=== PATIENT | male | born 1965 | race Caucasian/White ===

== ENCOUNTER 2023-02-08 06:17 | Emergency (ER) | payer BC ==
[~2023-02-08] VITALS: Ht 182.9 cm; Wt 97.5 kg
== END 2023-02-08 07:11 | disposition home or self-care (01) ==
LOC: FSED 06:23
DX: R04.0 Epistaxis (principal); R94.4 Abnormal results of kidney function studies
CPT/HCPCS: 80053; 85025; 85610; 99282